=== PATIENT | male | born 1995 | race Caucasian/White ===

== ENCOUNTER 2018-07-12 17:29 | Emergency (ER) | payer BC, OTHER ==
--- NOTE | 2018-07-12 18:04 | ER ---
Nurse's Notes [facility] Name: Jose Lynn Age: 22 yrs Sex: Male : 1995 Arrival Date: 07/12/2018 Time: 17:31 Bed 12 Private MD: Familia Moran B Diagnosis: Strain of muscle, fascia and tendon of lower back Presentation: 07/12 17:46 Presenting complaint: Patient states: I have had back pain for about a week but last la1 night they had me lifting a lot of weight and it made my back pain much worse. Transition of care: patient was not received from another setting of care. Onset of symptoms was July 12, 2018. Risk Assessment: Do you want to hurt yourself or someone else? Patient reports no desire to harm self or others. Initial Sepsis Screen: Does the patient meet any 2 criteria? No. Patient's initial sepsis screen is negative. Does the patient have a suspected source of infection? Yes:. Care prior to arrival: None. 17:46 Method Of Arrival: Ambulatory la1 17:46 Acuity: LINDSEY 4 la1 Historical: - Allergies: 17:47 Benadryl; la1 - PMHx: 17:47 Hypertension; la1 - Immunization history:: Adult Immunizations. - Social history:: Smoking status: Patient/guardian denies using tobacco. - Ebola Screening: : No symptoms or risks identified at this time. Screenin:50 Abuse screen: Denies threats or abuse. Nutritional screening: On. Nutritional la1 screening: No deficits noted. Tuberculosis screening: No symptoms or risk factors identified. Fall Risk None identified. Assessment: 17:49 General: Appears in no apparent distress. Behavior is calm, cooperative. Pain: la1 Complains of pain in left mid back and right mid back. Neuro: Level of Consciousness is awake, alert, obeys commands, Oriented to person, place, time, situation, Machine Heel Seat Fitter are equal bilaterally Moves all extremities. Full function Gait is steady, Speech is normal, Facial symmetry appears normal, Pupils are PERRLA. Cardiovascular: Patient's skin is warm and dry. Respiratory: Airway is patent Respiratory effort is even, unlabored. GI: No signs and/or symptoms were reported involving the gastrointestinal system. : No signs and/or symptoms were reported regarding the genitourinary system. Vital Signs: 17:47 BP 127 / 74; Pulse 87; Resp 16; Temp 97.5; Pulse Ox 98% on R/A; Weight 72.57 kg; Height la1 5 ft. 8 in. (172.72 cm); 17:47 Body Mass Index 24.33 (72.57 kg, 172.72 cm) la1 ED Course: 17:31 Patient arrived in ED. rg4 17:31 Familia Moran MD is Private Physician. rg4 17:47 Triage completed. la1 17:48 Arm band placed on left wrist. la1 17:49 Jose M Nobles, SAY is Primary Nurse. la1 17:50 Tacho Schuler NP is PHCP. pm1 17:50 Orville Beebe MD is Attending Physician. pm1 17:50 Call light in reach. la1 18:27 No provider procedures requiring assistance completed. Patient did not have IV access hb during this emergency room visit. Administered Medications: 18:08 Drug: [place] 5 mg-325 mg 1 tabs Route: PO; la1 18:08 Drug: Flexeril 10 mg Route: PO; la1 18:08 Drug: TORadol 60 mg Route: IM; Site: right gluteus; la1 Outcome: 18:04 Discharge ordered by MD. pm1 18:27 Discharged to home ambulatory, with family. hb 18:27 Condition: stable 18:27 Discharge instructions given to patient, family, Instructed on discharge instructions, follow up and referral plans. medication usage, Demonstrated understanding of instructions, follow-up care, medications, Prescriptions given X 3. 18:28 Patient left the ED. hb Signatures: Jose M Nobles RN RN la1 Tacho Schuler NP HANDICRAFTS TEACHER pm1 Arline Streeter RN RN hb Garcia, Rubi rg4 Corrections: (The following items were deleted from the chart) 17:48 17:46 Acuity: LINDSEY 5 la1 la1
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
[2018-07-12] MEDS ORDERED: HYDROCODONE/APAP 5/325 MG TAB ONE (18:14)
[2018-07-12] MEDS ORDERED: CYCLOBENZAPRINE 10 MG TAB ONE (18:14)
[2018-07-12] MEDS ORDERED: KETOROLAC 30 MG/ML INJ ONE (18:14)
== END 2018-07-12 18:28 | disposition home or self-care (01) ==
LOC: ER 17:29
DX: S39.012A Strain of muscle, fascia and tendon of lower back, initial encounter (principal); X50.0XXA Overexertion from strenuous movement or load, initial encounter; Y93.89 Activity, other specified; Y92.89 Other specified places as the place of occurrence of the external cause; Y99.8 Other external cause status; Z88.8 Allergy status to other drugs, medicaments and biological substances; I10 Essential (primary) hypertension
CPT/HCPCS: 96372; 99283

== ENCOUNTER 2019-06-18 01:15 | Emergency (ER) | payer BC ==
[2019-06-18] MEDS ORDERED: ONDANSETRON 4 MG/2 ML VIAL ONE (01:27)
[2019-06-18] MEDS ORDERED: MORPHINE 4 MG/ML SYR ONE (01:27)
[2019-06-18] MEDS ORDERED: NA CHLORIDE 0.9% 1,000 ML ONE (01:35)
[2019-06-18] MEDS ORDERED: HYDROCODONE/APAP 7.5/325 MG TAB ONE (02:05)
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
[2019-06-18] MEDS ORDERED: CEFAZOLIN/SWI 1gm 1 GM/10 ML SYR ONE (02:29)
[2019-06-18 03:07] VITALS: TEMP 98
[2019-06-18 03:08] VITALS: BP 147/81; O2SAT 98
--- NOTE | 2019-06-18 07:50 | RAD REPORT ---
EXAM DESCRIPTION: RAD - Hand Right 3 View - 06/18/2019 1:53 am CLINICAL HISTORY: Right hand pain status post injury FINDINGS: No fracture or dislocation is seen.
== END 2019-06-18 02:50 | disposition home or self-care (01) ==
LOC: ER 01:15
DX: S60.410A Abrasion of right index finger, initial encounter (principal); W23.0XXA Caught, crushed, jammed, or pinched between moving objects, initial encounter; Y93.9 Activity, unspecified; Z88.8 Allergy status to other drugs, medicaments and biological substances
CPT/HCPCS: 73130; 99284; J0690; J7030; J2405

== ENCOUNTER 2019-08-14 08:44 | Emergency (ER) | payer BC ==
[2019-08-14] MEDS ORDERED: IBUPROFEN 400 MG TAB ONE (09:22)
--- NOTE | 2019-08-14 09:50 | RAD REPORT ---
EXAM DESCRIPTION: RAD - Chest Pa And Lat (2 Views) - 08/14/2019 9:17 am CLINICAL HISTORY: fever, cough COMPARISON: No comparisons TECHNIQUE: Frontal and lateral views of the chest were obtained. FINDINGS: The lungs are clear. Heart size is normal and central vasculature is within normal limit s. No pleural effusion or pneumothorax seen. No acute bony finding noted. No aortic abnormality. IMPRESSION: No acute cardiopulmonary process.
--- NOTE | 2019-08-14 10:30 | EDPHYS ---
Physician Documentation [facility] Name: Jose Lynn Age: 23 yrs Sex: Male : 1995 Arrival Date: 08/14/2019 Time: 08:50 Bed 20 Private MD: Familia Moran B ED Physician Orville Beebe HPI: 08/14 09:09 This 23 yrs old Male presents to ER via Ambulatory with complaints of Flu jmm Symptoms. 09:09 The patient or guardian reports cough. Onset: The symptoms/episode began/occurred jmm gradually, 3 day(s) ago. Modifying factors: The symptoms are alleviated by nothing. the symptoms are aggravated by nothing. Associated signs and symptoms: Pertinent positives: fever, sore throat. This is a 23 year old male with a history of htn that presents to the ED with cough, fever, sore throat, headache, body aches beginning this past Sunday. . Historical: - Allergies: 08:58 Benadryl; bp - Home Meds: 08:58 None [Active]; bp - PMHx: 08:58 Hypertension; Back pain; bp - Immunization history:: Adult Immunizations up to date. - Social history:: Smoking status: Patient denies any tobacco usage or history of. - Ebola Screening: : No symptoms or risks identified at this time. ROS: 09:09 Constitutional: Positive for body aches, fever. jmm 09:09 ENT: Positive for sore throat. 09:09 Respiratory: Positive for cough. 09:09 Abdomen/GI: Negative for abdominal pain. 09:09 Neuro: Positive for 09:09 All other systems are negative. Exam: 09:09 Constitutional: This is a well developed, well nourished patient who is awake, alert, jmm and in no acute distress. Head/Face: atraumatic. Eyes: EOMI, no conjunctival erythema appreciated 09:09 Neck: Trachea midline, Supple Chest/axilla: Normal chest wall appearance and motion. 09:09 ENT: TM's: erythema, that is mild, bilaterally, Posterior pharynx: erythema, that is moderate. 09:09 Cardiovascular: Rate: normal, Rhythm: regular, Pulses: no pulse deficits are appreciated. 09:09 Respiratory: the patient does not display signs of respiratory distress, Respirations: normal, Breath sounds: are clear throughout. 09:09 Abdomen/GI: Inspection: abdomen appears normal, Bowel sounds: normal, Palpation: abdomen is soft and non-tender. 09:09 Musculoskeletal/extremity: ROM: intact in all extremities. 09:09 Skin: Appearance: Color: normal in color. 09:09 Neuro: Exam negative for Orientation: is normal, Mentation: is normal, Memory: is normal. 09:09 Psych: Behavior/mood is pleasant, cooperative. Vital Signs: 08:58 BP 129 / 91; Pulse 87; Resp 18; Temp 99.5; Pulse Ox 100% ; Weight 83.91 kg; Height 5 bp ft. 7 in. (170.18 cm); 09:32 BP 122 / 74; Pulse 80; Resp 16; Pulse Ox 100% ; bp 10:24 BP 119 / 72; Pulse 88; Resp 17; Temp 100.7(O); Pulse Ox 97% on R/A; mh5 08:58 Body Mass Index 28.97 (83.91 kg, 170.18 cm) bp MDM: 08:59 Patient medically screened. [facility] 10:28 Data reviewed: vital signs, nurses notes. Counseling: I had a detailed discussion with yajaira the patient and/or guardian regarding: the historical points, exam findings, and any diagnostic results supporting the discharge/admit diagnosis, lab results, radiology results, the need for outpatient follow up, to return to the emergency department if symptoms worsen or persist or if there are any questions or concerns that arise at home. ED course: Patient is alert and non toxic in appearance in the ED. Patient advised to follow up with pcp and otherwise given strict return precautions. Patient understood and agrees with the plan of care. . 08/14 08:53 Order name: Flu; Complete Time: 09:26 [facility] 08/14 08:53 Order name: Strep; Complete Time: 09:19 [facility] 08/14 09:02 Order name: Chest Pa And Lat (2 Views) XRAY; Complete Time: 10:10 [facility] 08/14 09:15 Order name: Throat Culture EDMS Administered Medications: 09:25 Drug: Motrin 800 mg Route: PO; bp 10:01 Follow up: Response: Pain is decreased bp Disposition: 10:41 Co-signature as Attending Physician, Orville Beebe MD. rn Disposition: 08/14/19 10:29 Discharged to Home. Impression: Acute bronchitis, Acute pharyngitis. - Condition is Stable. - Discharge Instructions: Acute Bronchitis, Adult, Pharyngitis. - Prescriptions for Prednisone 20 mg Oral Tablet - take 3 tablet by ORAL route once daily for 5 days; 15 tablet. Zithromax Z- Issac 250 mg Oral Tablet - take 1 tablet by ORAL route as directed for 5 days Day 1 - take two (2) tablets one time. Day 2, 3, 4 , 5 take one (1) tablet once daily.; 6 tablet. Albuterol Sulfate 90 mcg/actuation - inhale 1-2 puff by INHALATION route every 4-6 hours; 1 Inhaler. - Work release form, Medication Reconciliation Form, Thank You Letter, Antibiotic Education, Prescription Opioid Use form. - Follow up: Familia Moran MD; When: 2 - 3 days; Reason: Recheck today's complaints, Continuance of care, Re-evaluation by your physician. Signatures: Dispatcher [employer] EDMS Rusty Cox PA PA jmm Nieto, Roman, MD MD rn Peltier, Brian, RN RN bp Corrections: (The following items were deleted from the chart) 10:37 10:29 08/14/2019 10:29 Discharged to Home. Impression: Acute bronchitis; Acute bp pharyngitis. Condition is Stable. Forms are Medication Reconciliation Form, Thank You Letter, Antibiotic Education, Prescription Opioid Use. Follow up: Familia Moran; When: 2 - 3 days; Reason: Recheck today's complaints, Continuance of care, Re-evaluation by your physician. yajaira
--- NOTE | 2019-08-14 10:30 | ER ---
Nurse's Notes [facility] Name: Jose Lynn Age: 23 yrs Sex: Male : 1995 Arrival Date: 08/14/2019 Time: 08:50 Bed 20 Private MD: Familia Moran B Diagnosis: Acute bronchitis;Acute pharyngitis Presentation: 08/14 08:57 Presenting complaint: Patient states: SORE THROAT, FEVER, AND VOMITING SINCE SUNDAY. bp Transition of care: patient was not received from another setting of care. Onset of symptoms is unknown. Risk Assessment: Do you want to hurt yourself or someone else? Patient reports no desire to harm self or others. Initial Sepsis Screen: Does the patient meet any 2 criteria? No. Patient's initial sepsis screen is negative. Does the patient have a suspected source of infection? No. Patient's initial sepsis screen is negative. Care prior to arrival: None. 08:57 Method Of Arrival: Ambulatory bp 08:57 Acuity: LINDSEY 4 bp Triage Assessment: 08:58 General: Appears in no apparent distress. comfortable, ill, Behavior is calm, bp cooperative, appropriate for age. Pain: Complains of pain in THROAT. EENT: No deficits noted. Neuro: No deficits noted. Cardiovascular: No deficits noted. Respiratory: No deficits noted. GI: No signs and/or symptoms were reported involving the gastrointestinal system. : No signs and/or symptoms were reported regarding the genitourinary system. Derm: No deficits noted. Musculoskeletal: No deficits noted. Historical: - Allergies: 08:58 Benadryl; bp - Home Meds: 08:58 None [Active]; bp - PMHx: 08:58 Hypertension; Back pain; bp - Immunization history:: Adult Immunizations up to date. - Social history:: Smoking status: Patient denies any tobacco usage or history of. - Ebola Screening: : No symptoms or risks identified at this time. Screenin:00 Abuse screen: Denies threats or abuse. Denies injuries from another. Nutritional bp screening: No deficits noted. Tuberculosis screening: No symptoms or risk factors identified. Fall Risk None identified. Assessment: 09:00 General: SEE TRIAGE NOTE. bp 09:31 Reassessment: PT RETURNED FROM XRAY. ALL CURRENT ORDERS COMPLETE, NO CHANGE IN S/S. bp 10:35 Reassessment: PT D/C HOME AMBULATORY WITH FAMILY, DX WITH ACUTE BRONCHITIS. bp Vital Signs: 08:58 BP 129 / 91; Pulse 87; Resp 18; Temp 99.5; Pulse Ox 100% ; Weight 83.91 kg; Height 5 bp ft. 7 in. (170.18 cm); 09:32 BP 122 / 74; Pulse 80; Resp 16; Pulse Ox 100% ; bp 10:24 BP 119 / 72; Pulse 88; Resp 17; Temp 100.7(O); Pulse Ox 97% on R/A; mh5 08:58 Body Mass Index 28.97 (83.91 kg, 170.18 cm) bp ED Course: 08:50 Patient arrived in ED. mr 08:50 Familia Moran MD is Private Physician. mr 08:52 Rusty Cox PA is PHCP. [facility] 08:52 Orville Beebe MD is Attending Physician. [facility] 08:52 Rainer Anderson, SAY is Primary Nurse. bp 08:58 Triage completed. bp 08:58 Arm band placed on. bp 09:00 Patient has correct armband on for positive identification. Bed in low position. Call bp light in reach. Side rails up X2. Adult w/ patient. 09:00 Flu and/or RSV swab sent to lab. Strep swab sent to lab. bp 09:02 Flu and/or RSV swab sent to lab. Strep swab sent to lab. mh5 09:02 Strep Sent. mh5 09:02 Flu Sent. mh5 09:17 Chest Pa And Lat (2 Views) XRAY In Process Unspecified. EDMS 10:29 Familia Moran MD is Referral Physician. jmm 10:36 No provider procedures requiring assistance completed. Patient did not have IV access bp during this emergency room visit. Administered Medications: 09:25 Drug: Motrin 800 mg Route: PO; bp 10:01 Follow up: Response: Pain is decreased bp Outcome: 10:29 Discharge ordered by . jmm 10:37 Discharged to home ambulatory, with family. bp 10:37 Condition: stable 10:37 Discharge instructions given to patient, Instructed on discharge instructions, follow up and referral plans. medication usage, Demonstrated understanding of instructions, follow-up care, medications, Prescriptions given X 3. 10:37 Patient left the ED. bp Signatures: Dispatcher [employer] EDMS Tabatha Coxel, PA PA jmm Preston, Karin mr Uriah, Rosalina [facility] Rainer Anderson, RN RN bp
[2019-08-14 10:46] VITALS: BP 119/72; TEMP 100.7; O2SAT 97
== END 2019-08-14 10:37 | disposition home or self-care (01) ==
LOC: ER 08:44
DX: J20.9 Acute bronchitis, unspecified (principal); I10 Essential (primary) hypertension; Z88.8 Allergy status to other drugs, medicaments and biological substances
CPT/HCPCS: 71046; 87070; 87081; 87804; 99284

== ENCOUNTER 2019-11-05 16:54 | Emergency (ER) | payer BC ==
[2019-11-05] MEDS ORDERED: NA CHLORIDE 0.9% 1,000 ML ONE (17:16)
[2019-11-05] MEDS ORDERED: MORPHINE 2 MG/ML SYR ONE (17:17)
--- NOTE | 2019-11-05 17:24 | RAD REPORT ---
EXAM DESCRIPTION: RAD - Chest Single View - 11/05/2019 5:13 pm CLINICAL HISTORY: CHEST PAIN Chest pain. COMPARISON: Chest Pa And Lat (2 Views) dated 08/14/2019 FINDINGS: Portable technique limits examination quality. The lungs are grossly clear. The heart is normal in size. No displaced fractures. IMPRESSION: No acute intrathoracic process suspected.
[2019-11-05 17:27] LABS: Absolute Lymphocytes (CBC) 1.5 K/uL (0.7-4.9); Basophils % 0.9 % (0-1.3); Hematocrit 40.4 % (39.6-49.0); MPV 9.3 fL (7.6-11.3); RBC Red Blood Cell Count 4.73 M/uL (4.33-5.43)
[2019-11-05 17:35] LABS: Protime INR 0.92
[2019-11-05 17:57] LABS: ALT/SGPT 42 U/L (12-78); AST/SGOT 27 U/L (15-37); Albumin 4.3 g/dL (3.4-5.0); Alkaline Phosphatase 77 U/L (45-117); BUN Blood Urea Nitrogen 16 mg/dL (7-18); Bicarbonate 27 mmol/L (21-32); Bilirubin Direct 0.1 mg/dL (0-0.2); Bilirubin Total 0.4 mg/dL (0.2-1.0); Glucose Level 92 mg/dL (74-106); Magnesium 2.3 mg/dL (1.8-2.4); NT PRO-BNP 28 pg/mL (<125); Potassium 3.7 mmol/L (3.5-5.1); Sodium Level 140 mmol/L (136-145); Troponin (Emerg Dept Use Only) < 0.02 ng/mL (0.0-0.045)
[2019-11-05] MEDS ORDERED: KETOROLAC 30 MG/ML INJ ONE (18:16)
--- NOTE | 2019-11-05 21:09 | EDPHYS ---
Physician Documentation [facility] Name: Jose Lynn Age: 24 yrs Sex: Male : 1995 Arrival Date: 11/05/2019 Time: 16:59 Bed 18 Private MD: ED Physician Richmond Thompson HPI: 11/04 17:05 This 24 yrs old Male presents to ER via EMS with complaints of Chest Pain. cp 17:05 The patient or guardian reports chest pain that is located primarily in the anterior cp chest wall, bilaterally. 17:05 The pain does not radiate. The chest pain is described as stabbing. cp 17:05 Duration: The patient or guardian reports a single episode, that is still ongoing, and cp worsening. 17:05 Patient denies family history of early cardiac . cp Historical: - Allergies: 17:06 Benadryl; ah - Home Meds: 17:06 None [Active]; ah - PMHx: 17:06 Hypertension; Back pain; ah - PSHx: 17:06 None; ah - Immunization history:: Flu vaccine is up to date. - Social history:: Smoking status: Patient denies any tobacco usage or history of. Patient uses alcohol, occasionally. Patient/guardian denies using street drugs. ROS: 17:10 Eyes: Negative for injury, pain, redness, and discharge. cp 17:10 Constitutional: Negative for body aches, chills, fever, poor PO intake. 17:10 ENT: Negative for drainage from ear(s), ear pain, sore throat, difficulty swallowing, difficulty handling secretions. 17:10 Cardiovascular: Positive for chest pain, Negative for edema, palpitations. 17:10 Respiratory: Negative for cough, shortness of breath, wheezing. 17:10 Abdomen/GI: Negative for abdominal pain, nausea, vomiting, and diarrhea. 17:10 Back: Negative for pain at rest, pain with movement, radiated pain. 17:10 Skin: Negative for rash. 17:10 Neuro: Negative for altered mental status, dizziness, headache, syncope, weakness. 17:10 All other systems are negative. Exam: 17:08 ECG was reviewed by the Attending Physician. cp 17:15 Constitutional: The patient appears in no acute distress, alert, awake, cp non-diaphoretic, non-toxic, well developed, well nourished, uncomfortable. 17:15 Head/Face: Normocephalic, atraumatic. cp 17:15 Eyes: Pupils equal round and reactive to light, extra-ocular motions intact. Lids and cp lashes normal. Conjunctiva and sclera are non-icteric and not injected. Cornea within normal limits. Periorbital areas with no swelling, redness, or edema. ENT: Nares patent. No nasal discharge, no septal abnormalities noted. Tympanic membranes are normal and external auditory canals are clear. Oropharynx with no redness, swelling, or masses, exudates, or evidence of obstruction, uvula midline. Mucous membranes moist. 17:15 Chest/axilla: Inspection: normal, Palpation: crepitus, is not appreciated, tenderness, that is moderate, of the anterior aspect of left upper chest, that partially reproduces the patient's complaints. 17:15 Cardiovascular: Rate: normal, Rhythm: regular, Heart sounds: murmur, not appreciated, Edema: is not appreciated, JVD: is not appreciated. 17:15 Respiratory: the patient does not display signs of respiratory distress, Respirations: normal, no use of accessory muscles, no retractions, labored breathing, is not present, Breath sounds: are clear throughout, no decreased breath sounds, no stridor, no wheezing. 17:15 Abdomen/GI: Inspection: abdomen appears normal, Palpation: abdomen is soft and non-tender, in all quadrants. 17:15 Back: pain, is absent, ROM is normal. 17:15 Neuro: Orientation: to person, place \T\ time. Mentation: is normal, Motor: moves all fours, strength is normal. 20:48 ECG was reviewed by the Attending Physician. cp Vital Signs: 17:01 BP 139 / 94; Pulse 72; Resp 20; Temp 97.6; Pulse Ox 95% ; Weight 81.65 kg; Height 5 ft. ah 8 in. (172.72 cm); Pain 10/10; 17:23 BP 136 / 83; Pulse 65; Resp 18; Pulse Ox 95% on R/A; mh5 17:42 BP 124 / 84 RA; Pulse 67; Resp 17; Temp 97.5(TE); Pulse Ox 95% on R/A; mh5 17:45 BP 123 / 78 LA; Pulse 66; Resp 14; Pulse Ox 96% on R/A; mh5 18:57 BP 125 / 83; Pulse 72; Resp 20; Pulse Ox 97% on R/A; mh5 20:00 BP 115 / 69; Pulse 70; Resp 15; Pulse Ox 98% ; ah 21:00 BP 113 / 72; Pulse 67; Resp 21; Pulse Ox 96% ; ah 17:01 Body Mass Index 27.37 (81.65 kg, 172.72 cm) MDM: 17:01 Patient medically screened. cp 17:30 Differential diagnosis: acute pericarditis, chest wall pain, costochondritis, cp pericarditis, pleurisy, pneumonia, pneumothorax, pulmonary embolus, thoracic aortic disection. 21:08 Data reviewed: vital signs, nurses notes, lab test result(s), EKG, radiologic studies, cp plain films. 21:08 Test interpretation: by ED physician or midlevel provider: ECG. Response to treatment: cp the patient's symptoms have markedly improved after treatment, and as a result, I will discharge patient. Special discussion: Based on the patient's history, exam, and Dx evaluation, there is no indication for emergent intervention or inpatient Tx. It is understood by the patient/guardian that if the Sx's persist or worsen they need to return immediately for re-evaluation. 11/04 17:01 Order name: Basic Metabolic Panel; Complete Time: 18:14 11/04 18:15 Interpretation: Reviewed. 11/04 17:01 Order name: CBC with Diff; Complete Time: 17:40 11/04 17:40 Interpretation: Reviewed. 11/04 17:01 Order name: LFT's; Complete Time: 18:14 11/04 18:15 Interpretation: Normal except: GLOB 3.7. 11/04 17:01 Order name: Magnesium; Complete Time: 18:14 11/04 17:01 Order name: NT PRO-BNP; Complete Time: 18:14 cp 11/04 17:01 Order name: PT-INR; Complete Time: 17:40 11/04 17:01 Order name: Troponin (emerg Dept Use Only); Complete Time: 18:14 11/04 17:01 Order name: XRAY Chest (1 view); Complete Time: 17:29 cp 11/04 17:29 Interpretation: Report review. 11/04 17:01 Order name: EKG; Complete Time: 17:02 cp 11/04 17:01 Order name: D-Dimer; Complete Time: 17:40 cp 11/04 17:40 Interpretation: Within normal limits: D-DIMER < 215. cp 11/04 20:13 Order name: Troponin I 11/04 17:01 Order name: Cardiac monitoring; Complete Time: 17:28 cp 11/04 17:01 Order name: EKG - Nurse/Tech; Complete Time: 17:28 cp 11/04 17:01 Order name: IV Saline Lock; Complete Time: 17:28 cp 11/04 17:01 Order name: Labs collected and sent; Complete Time: 17:28 cp 11/04 17:01 Order name: O2 Per Protocol 11/04 17:01 Order name: O2 Sat Monitoring 11/04 17:01 Order name: Blood Pressure Recheck: bilateral upper extremity; Complete Time: 18:49 cp 11/04 20:13 Order name: EKG; Complete Time: 20:13 11/04 20:13 Order name: EKG - Nurse/Tech; Complete Time: 20:38 cp EC:08 Rate is 65 beats/min. Rhythm is regular. DC interval is normal. QRS interval is normal. cp QT interval is normal. Interpreted by me. Reviewed by me. 20:48 Rate is 68 beats/min. Rhythm is regular. DC interval is normal. QRS interval is normal. cp QT interval is normal. Interpreted by me. Reviewed by me. Administered Medications: 17:22 Drug: NS 0.9% 1000 ml Route: IV; Rate: 1 bolus; Site: left antecubital; 19:51 Follow up: Response: No adverse reaction; IV Status: Completed infusion; IV Intake: ah 1000ml 17:22 Drug: morphine 2 mg Route: IVP; Site: left antecubital; 19:51 Follow up: Response: No adverse reaction; RASS: Alert and Calm (0) 18:15 Drug: TORadol - Ketorolac 15 mg Route: IVP; Site: right antecubital; 19:15 Follow up: Response: No adverse reaction Disposition: 11/05 07:19 Co-signature as Attending Physician, Richmond Thompson MD Available for consultation . ps1 Disposition: 11/05/19 21:09 Discharged to Home. Impression: Chest pain, unspecified. - Condition is Stable. - Discharge Instructions: Nonspecific Chest Pain, Form - Excuse from Work, School, or Physical Activity. - Prescriptions for Ibuprofen 800 mg Oral Tablet - take 1 tablet by ORAL route every 8 hours As needed take with food; 30 tablet. - Medication Reconciliation Form, Thank You Letter, Antibiotic Education, Prescription Opioid Use form. - Follow up: Private Physician; When: 1 - 2 days; Reason: Recheck today's complaints. - Problem is new. - Symptoms have improved. Signatures: Dispatcher [employer] EDMS Pelon Tuttle PA PA cp Richmond Thompson MD MD [facility] Lakshmi Dillard RN RN Corrections: (The following items were deleted from the chart) 11/04 21:28 21:09 11/05/2019 21:09 Discharged to Home. Impression: Chest pain, unspecified. Condition is Stable. Forms are Medication Reconciliation Form, Thank You Letter, Antibiotic Education, Prescription Opioid Use. Follow up: Private Physician; When: 1 - 2 days; Reason: Recheck today's complaints. Problem is new. Symptoms have improved. cp
--- NOTE | 2019-11-05 21:09 | ER ---
Nurse's Notes [facility] Name: Jose Lynn Age: 24 yrs Sex: Male : 1995 Arrival Date: 11/05/2019 Time: 16:59 Bed 18 Private MD: Diagnosis: Chest pain, unspecified Presentation: 11/04 17:01 Chief complaint: Patient states: chest pain started after lunch and states it became ah worse all of a den, Vitals per EMS 149/77, sinus rhythm on 12 lead per EMS. Coronavirus screen: Proceed with normal triage. Patient denies a cough. Patient denies shortness of breath or difficulty breathing. Patient denies measured and/or subjective temperature greater than 100.4F prior to today's visit. Patient denies travel on a cruise ship or to a country the [facility] currently lists as an affected area. Patient denies contact with known and/or suspected case of COVID-19. Ebola Screen: No symptoms or risks identified at this time. Initial Sepsis Screen: Does the patient meet any 2 criteria? No. Patient's initial sepsis screen is negative. Does the patient have a suspected source of infection? No. Patient's initial sepsis screen is negative. Risk Assessment: Do you want to hurt yourself or someone else? Patient reports no desire to harm self or others. Onset of symptoms was November 05, 2019. 17:01 Method Of Arrival: EMS: [facility] 17:01 Acuity: LINDSEY 3 Historical: - Allergies: 17:06 Benadryl; - Home Meds: 17:06 None [Active]; - PMHx: 17:06 Hypertension; Back pain; - PSHx: 17:06 None; - Immunization history:: Flu vaccine is up to date. - Social history:: Smoking status: Patient denies any tobacco usage or history of. Patient uses alcohol, occasionally. Patient/guardian denies using street drugs. Screenin:26 Abuse screen: Denies threats or abuse. Nutritional screening: No deficits noted. Tuberculosis screening: No symptoms or risk factors identified. Fall Risk None identified. Assessment: 17:00 General: Appears uncomfortable, Behavior is calm, cooperative, appropriate for age. Pain: Complains of pain in anterior aspect of left upper chest and left breast Pain does not radiate. Pain currently is 10 out of 10 on a pain scale. Quality of pain is described as stabbing, Pain began 3 hours ago. Is continuous. Neuro: Level of Consciousness is awake, alert, Oriented to person, place, time, situation. Cardiovascular: Heart tones S1 S2 present Capillary refill < 3 seconds Patient's skin is warm and dry. Pulses are absent in right radial artery and left radial artery. Respiratory: Airway is patent Respiratory effort is even, unlabored, Respiratory pattern is regular, symmetrical, Breath sounds are clear. GI: Abdomen is Bowel sounds present X 4 quads. : No signs and/or symptoms were reported regarding the genitourinary system. EENT: No signs and/or symptoms were reported regarding the EENT system. Derm: No signs and/or symptoms reported regarding the dermatologic system. Musculoskeletal: No signs and/or symptoms reported regarding the musculoskeletal system. 18:15 Reassessment: Pt continues to c/o pain. Toradol given at this time. No other needs ah voiced. 19:56 Reassessment: Patient appears in no apparent distress at this time. Patient and/or family updated on plan of care and expected duration. Pain level reassessed. informed pt that labs would be repeated at 2000 and a decision will be made with those results. Pt voiced understanding. 20:30 Reassessment: Patient and/or family updated on plan of care and expected duration. Pain ah level reassessed. Patient is alert, oriented x 3, equal unlabored respirations, skin warm/dry/pink. Repeat Troponin drawn at this time and EKG completed. Patient states feeling better. 21:20 Reassessment: Pt given discharge instructions. Educated on prescriptions and need for follow up. Pt voiced understanding. Vital Signs: 17:01 BP 139 / 94; Pulse 72; Resp 20; Temp 97.6; Pulse Ox 95% ; Weight 81.65 kg; Height 5 ft. 8 in. (172.72 cm); Pain 10/10; 17:23 BP 136 / 83; Pulse 65; Resp 18; Pulse Ox 95% on R/A; mh5 17:42 BP 124 / 84 RA; Pulse 67; Resp 17; Temp 97.5(TE); Pulse Ox 95% on R/A; mh5 17:45 BP 123 / 78 LA; Pulse 66; Resp 14; Pulse Ox 96% on R/A; 5 18:57 BP 125 / 83; Pulse 72; Resp 20; Pulse Ox 97% on R/A; [facility] 20:00 BP 115 / 69; Pulse 70; Resp 15; Pulse Ox 98% ; 21:00 BP 113 / 72; Pulse 67; Resp 21; Pulse Ox 96% ; 17:01 Body Mass Index 27.37 (81.65 kg, 172.72 cm) ED Course: 16:59 Patient arrived in ED. 16:59 Pelon Tuttle PA is PHCP. cp 17:00 Richmond Thompson MD is Attending Physician. 17:00 Lakshmi Dillard, RN is Primary Nurse. 17:05 Triage completed. 17:13 XRAY Chest (1 view) In Process Unspecified. EDMS 17:23 Initial lab(s) drawn, by fl, sent to lab. Inserted saline lock: 22 gauge in left mh5 antecubital area, using aseptic technique. Blood collected. 17:23 Patient has correct armband on for positive identification. Placed in gown. Bed in low mh5 position. Call light in reach. Side rails up X2. Warm blanket given. desk monitor on. Pulse ox on. NIBP on. 17:27 Basic Metabolic Panel Sent. 5 17:27 D-Dimer Sent. 5 17:27 CBC with Diff Sent. 5 17:27 LFT's Sent. 5 17:28 Magnesium Sent. 5 17:28 NT PRO-BNP Sent. 5 17:28 PT-INR Sent. [facility] 17:28 Troponin (emerg Dept Use Only) Sent. [facility] 18:00 Missed attempt(s): 22 gauge in right antecubital area. Bleeding controlled, band aid ll1 applied, catheter tip intact. 18:00 Missed attempt(s): 20 gauge in right antecubital area. Bleeding controlled, band aid ll1 applied, catheter tip intact. 18:07 Inserted saline lock: 22 gauge in right antecubital area, using aseptic technique. Blood collected. 21:26 No provider procedures requiring assistance completed. IV discontinued, intact, bleeding controlled, No redness/swelling at site. Pressure dressing applied. Patient maintains SpO2 saturation greater than 95% on room air. 21:26 Patient notified of wait time. Administered Medications: 17:22 Drug: NS 0.9% 1000 ml Route: IV; Rate: 1 bolus; Site: left antecubital; 19:51 Follow up: Response: No adverse reaction; IV Status: Completed infusion; IV Intake: ah 1000ml 17:22 Drug: morphine 2 mg Route: IVP; Site: left antecubital; 19:51 Follow up: Response: No adverse reaction; RASS: Alert and Calm (0) 18:15 Drug: TORadol - Ketorolac 15 mg Route: IVP; Site: right antecubital; 19:15 Follow up: Response: No adverse reaction Intake: 19:51 IV: 1000ml; Total: 1000ml. Outcome: 21:09 Discharge ordered by MD. 21:25 Discharged to home ambulatory. 21:25 Condition: good 21:25 Discharge instructions given to patient, Instructed on discharge instructions, follow up and referral plans. medication usage, Demonstrated understanding of instructions, follow-up care, medications, Prescriptions given X 1. 21:28 Patient left the ED. Signatures: Dispatcher [employer] EDAZ Radhika Becerril RN RN ss Page, Corey, PA PA cp Martinez, Maria [facility] Lakshmi Dillard RN RN Precious Farnsworth RN RN ll1 Corrections: (The following items were deleted from the chart) 19:56 19:55 Reassessment: Pt continues to c/o pain. Toradol given at this time. No other needs voiced
[2019-11-05 21:40] VITALS: TEMP 97.5
[2019-11-05 21:42] VITALS: BP 125/83; O2SAT 97
--- NOTE | 2019-11-07 12:06 | EKG ---
Test Date: 2019-11-05 Test Time: 20:33:08 Wood Stainer: Dakota Dillard MEASUREMENT RESULTS: Intervals: Rate: 68 NE: 150 QRSD: 82 QT: 410 QTc: 435 [place]: P: 9 NE: 150 QRS: 20 T: 0 INTERPRETIVE STATEMENTS: Normal sinus rhythm Normal ECG No previous ECG available for comparison Electronically Signed On 11-07-19 12:03:12 CDT by Miguel Angel Fermin
--- NOTE | 2019-11-07 12:06 | EKG ---
Test Date: 2019-11-05 Test Time: 17:06:24 Motion Picture Camera Operator: KIKI MEASUREMENT RESULTS: Intervals: Rate: 65 ME: 136 QRSD: 90 QT: 404 QTc: 420 [place]: P: 37 ME: 136 QRS: 49 T: 17 INTERPRETIVE STATEMENTS: Normal sinus rhythm Normal ECG No previous ECG available for comparison Electronically Signed On 11-07-19 12:03:16 CDT by Miguel Angel Fermin
== END 2019-11-05 21:28 | disposition home or self-care (01) ==
LOC: ER 16:54
DX: R07.9 Chest pain, unspecified (principal)
CPT/HCPCS: 93005 ×2; 85025; 80048; 36415; 83735; 85610; 85379; 80076; 84484 ×2; 83880; 71045; J2270; J7030; 96361; 96374; 96375; 99285